=== PATIENT | female | born 1965 | race Caucasian/White ===

== ENCOUNTER 2017-02-28 15:04 | Emergency (ER) | payer OTHER ==
[~2017-02-28] VITALS: Ht 160 cm; Wt 65.8 kg
--- NOTE | 2017-02-28 15:04 | NUR ---
BIBRA 88 FOR PSYCH EVAL, PATIENT WAS RUNNING ON A TRAFFIC, 5MG VERSED GIVEN. COMBATIVE IN FIELD. NAD NOTED. PLACED ON MONITOR. MD AT BEDSIDE FOR EVAL.
[2017-02-28] MEDS ORDERED: ONDANSETRON HCL/PF 4 MG/2 ML VIAL IVP ONE (15:30)
[2017-02-28] MEDS ORDERED: IV NS 0.9% 1,000 ML BAG IV ONE (15:30)
[2017-02-28] MEDS ORDERED: ONDANSETRON HCL/PF 4 MG/2 ML VIAL ONE ×2 (15:33→15:36)
[2017-02-28 15:44] LABS: BASOPHILS % (AUTO) 0.2 % (0.0-2.0); EOSINOPHILS # (AUTO) 0.1 /CMM (0.0-0.7); EOSINOPHILS % (AUTO) 1.6 % (0.0-6.0); HEMATOCRIT 30 % (33-45); HEMOGLOBIN 9.6 g/dL (11.5-14.8); LYMPHOCYTES # (AUTO) 1.9 /CMM (0.8-4.8); LYMPHOCYTES % (AUTO) 35.9 % (20.0-44.0); MEAN CORPUSCULAR HEMOGLOBIN 26 PG (26.0-33.0); MEAN CORPUSCULAR HGB CONC 32 g/dl (31.0-36.0); MEAN CORPUSCULAR VOLUME 81 fL (82-100); MONOCYTES # (AUTO) 0.4 /CMM (0.1-1.30); MONOCYTES % (AUTO) 8.7 % (2.0-12.0); NEUTROPHILS # (AUTO) 2.8 /CMM (1.8-8.9); NEUTROPHILS % (AUTO) 53.6 % (43.0-81.0); PLATELET COUNT (AUTO) 222 /CMM (150-450); RDW COEFFICIENT OF VARIATION 16.5 (11.5-15.0); RED BLOOD CELL COUNT(AUTO) 3.74 MIL/uL (4.0-5.2); WHITE BLOOD COUNT (AUTO) 5.2 K/uL (4.3-11.0)
[2017-02-28 15:55] LABS: CALCIUM, SERUM 8.3 mg/dL (8.5-10.1); CARBON DIOXIDE 27 mmol/L (21-32); CHLORIDE 106 mmol/L (98-107); CREATININE 0.6 mg/dL (0.6-1.3); GLUCOSE 118 mg/dL (74-106); POTASSIUM 3.8 mmol/L (3.5-5.1); SODIUM SERUM 142 mmol/L (136-145); UREA NITROGEN, BLOOD 25 mg/dL (7-18)
[2017-02-28 16:02] LABS: ALANINE AMINOTRANSFERASE 33 U/L (12-78); ALBUMIN 3.3 g/dL (3.4-5.0); ALCOHOL, BLOOD < 3 mg/dL (0-0); ALKALINE PHOSPHATASE 57 U/L (46-116); ASPARTATE AMINOTRANSFERASE 24 U/L (15-37); BILIRUBIN,DIRECT 0.1 mg/dL (0.0-0.2); BILIRUBIN,TOTAL 0.3 mg/dL (0.2-1.0)
--- NOTE | 2017-02-28 16:03 | NUR ---
URINE OBTAINED SENT TO LAB
[2017-02-28 16:08] LABS: SALICYLATE 1.5 mg/dL (2.8-20.0)
[2017-02-28 16:09] LABS: ACETAMINOPHEN 0 ug/ml (10-30)
[2017-02-28 17:57] LABS: APPEARANCE,URINE CLEAR (CLEAR); BILIRUBIN,URINE NEGATIVE (NEGATIVE); BLOOD, URINE NEGATIVE Ery/uL (NEGATIVE); COLOR,URINE YELLOW (YELLOW); KETONES,URINE NEGATIVE (NEGATIVE); LEUKOCYTE ESTERASE ,URINE NEGATIVE (NEGATIVE); NITRITE, URINE NEGATIVE (NEGATIVE); PROTEIN,URINE NEGATIVE (NEGATIVE); UGLUCOSE NEGATIVE (NEGATIVE)
--- NOTE | 2017-02-28 18:11 | NUR ---
pinky for eval eta 1 hour
[2017-02-28] MEDS ORDERED: OLANZAPINE 10 MG VIAL IM ONE ×3 (20:00→20:02)
[2017-02-28] MEDS ORDERED: WATER FOR INJECTION,STERILE 10 ML ONE (20:02)
--- NOTE | 2017-02-28 21:37 | NUR ---
Patient is resting comfortably in bed with eyes closed. Easily aroused. VSS
[2017-02-28] MEDS ORDERED: LORAZEPAM INJ 2 MG/ML VIAL ONE (23:34)
[2017-03-01] MEDS ORDERED: LORAZEPAM INJ 2 MG/ML VIAL IV ONE
--- NOTE | 2017-03-01 01:45 | NUR ---
Patient is resting comfortably in bed with eyes closed. Easily aroused. VSS.
--- NOTE | 2017-03-01 03:25 | NUR ---
Patient is resting comfortably in bed with eyes closed. Easily aroused. VSS. pt able to verbalize needs.
--- NOTE | 2017-03-01 07:40 | NUR ---
Patient is resting comfortably in bed with eyes closed. Easily aroused. VSS
--- NOTE | 2017-03-01 09:40 | NUR ---
Pt is ambulatory with a steady gait.
--- NOTE | 2017-03-01 10:10 | NUR ---
Patient discharged to home in stable condition. Written and verbal after care instructions given. Patient verbalizes understanding of instruction.
[2017-03-01 10:20] VITALS: BP 126/81
== END 2017-03-01 10:22 | disposition home or self-care (01) ==
LOC: ER 15:31
DX: F29 Unspecified psychosis not due to a substance or known physiological condition (principal)
CPT/HCPCS: 36415; 80048; 80076; 80305; 80329; 81001; 85025; 96361; 96372 ×2; 96374; 96375; 99284; A4606; G0480 ×2; J2060; J2405 ×2; J3490; J7030 ×2; Z7610; 81000-TC

== ENCOUNTER 2017-03-05 14:22 | Emergency (ER) | payer OTHER ==
[~2017-03-05] VITALS: Ht 165.1 cm; Wt 70.3 kg
[2017-03-05] MEDS ORDERED: HALOPERIDOL LACTATE INJ 5 MG/ML VIAL ONE (14:28)
[2017-03-05] MEDS ORDERED: diphenhydrAMINE HCL 50 MG/ML VIAL ONE (14:28)
[2017-03-05] MEDS ORDERED: LORAZEPAM INJ 2 MG/ML VIAL ONE (14:29)
[2017-03-05] MEDS: LORAZEPAM INJ 2 MG/ML VIAL IM ONE (14:32)
[2017-03-05] MEDS: diphenhydrAMINE HCL 50 MG/ML VIAL IM ONE (14:33)
[2017-03-05] MEDS: HALOPERIDOL LACTATE INJ 5 MG/ML VIAL IM ONE (14:45)
[2017-03-05 15:10] LABS: BASOPHILS # (AUTO) 0.1 /CMM (0.0-0.2); EOSINOPHILS # (AUTO) 0.1 /CMM (0.0-0.7); EOSINOPHILS % (AUTO) 2.4 % (0.0-6.0); HEMATOCRIT 30 % (33-45); HEMOGLOBIN 9.8 g/dL (11.5-14.8); LYMPHOCYTES # (AUTO) 1.7 /CMM (0.8-4.8); LYMPHOCYTES % (AUTO) 32.3 % (20.0-44.0); MEAN CORPUSCULAR HEMOGLOBIN 26 PG (26.0-33.0); MEAN CORPUSCULAR HGB CONC 32 g/dl (31.0-36.0); MEAN CORPUSCULAR VOLUME 80 fL (82-100); MONOCYTES # (AUTO) 0.5 /CMM (0.1-1.30); MONOCYTES % (AUTO) 10.3 % (2.0-12.0); NEUTROPHILS # (AUTO) 2.8 /CMM (1.8-8.9); PLATELET COUNT (AUTO) 213 /CMM (150-450); RDW COEFFICIENT OF VARIATION 15.5 (11.5-15.0); RED BLOOD CELL COUNT(AUTO) 3.76 MIL/uL (4.0-5.2); WHITE BLOOD COUNT (AUTO) 5.2 K/uL (4.3-11.0)
[2017-03-05 15:27] LABS: CALCIUM, SERUM 8.3 mg/dL (8.5-10.1); CARBON DIOXIDE 20 mmol/L (21-32); CHLORIDE 108 mmol/L (98-107); CREATININE 0.9 mg/dL (0.6-1.3); GLUCOSE 107 mg/dL (74-106); POTASSIUM 3.3 mmol/L (3.5-5.1); SODIUM SERUM 142 mmol/L (136-145); UREA NITROGEN, BLOOD 16 mg/dL (7-18)
[2017-03-05 15:29] LABS: APPEARANCE,URINE Clear (CLEAR); BILIRUBIN,URINE Negative (NEGATIVE); BLOOD, URINE Moderate Ery/uL (NEGATIVE); COLOR,URINE Yellow (YELLOW); KETONES,URINE 15 (NEGATIVE); LEUKOCYTE ESTERASE ,URINE Negative (NEGATIVE); NITRITE, URINE Negative (NEGATIVE); PROTEIN,URINE Negative (NEGATIVE); UGLUCOSE Negative (NEGATIVE)
[2017-03-05 15:35] LABS: RBC,URINE 0-2 /HPF (0-2)
[2017-03-05 15:36] LABS: BACTERIA,URINE Moderate /HPF (None Seen); SQUAMOUS EPITHELIAL CELL,UR Moderate /HPF (None Seen)
[2017-03-05 15:39] LABS: ALANINE AMINOTRANSFERASE 25 U/L (12-78); ALBUMIN 3.3 g/dL (3.4-5.0); ALCOHOL, BLOOD 18 mg/dL (0-0); ALKALINE PHOSPHATASE 64 U/L (46-116); ASPARTATE AMINOTRANSFERASE 23 U/L (15-37); BILIRUBIN,DIRECT 0.1 mg/dL (0.0-0.2); BILIRUBIN,TOTAL 0.2 mg/dL (0.2-1.0); TOTAL PROTEIN, SERUM 6.9 g/dL (6.4-8.2)
[2017-03-05 15:42] LABS: SALICYLATE 1.6 mg/dL (2.8-20.0)
[2017-03-05 15:43] LABS: ACETAMINOPHEN < 10 ug/ml (10-30)
[2017-03-05] MEDS ORDERED: POTASSIUM CHLORIDE 20 MEQ TAB.PRT.SR PO ONE (17:24)
[2017-03-05] MEDS: POTASSIUM CHLORIDE 20 MEQ TAB.PRT.SR PO ONE (17:25)
[2017-03-06 06:24] VITALS: BP 128/71
== END 2017-03-06 06:25 | disposition home or self-care (01) ==
LOC: ER 14:25
DX: F29 Unspecified psychosis not due to a substance or known physiological condition (principal); D64.9 Anemia, unspecified; E87.6 Hypokalemia; F15.10 Other stimulant abuse, uncomplicated
CPT/HCPCS: 36415; 80048-TC; 80076-TC; 80305; 81000-TC; 85025-TC; 87086-TC; 87186-TC; G0480; J1200; J1630; J2060

== ENCOUNTER 2019-08-03 07:37 | Inpatient (IN) | payer OTHER ==
[~2019-08-03] VITALS: Ht 165.1 cm; Wt 75.3 kg
--- NOTE | 2019-08-03 07:45 | NUR ---
[id number] 54 YEAR OLD FEMALE picked up from the street, c/o "i can't feel my feet". ALERT AND ORIENTED X1-2, BREATHING EVEN AND UNLABORED. NOTED TO BE HOMELESS. SKIN WARM TO TOUCH. WAITING TO BE SEEN BY
[2019-08-03] MEDS ORDERED: ACETAMINOPHEN ES 500 MG TABLET ONE (08:19)
[2019-08-03 08:30] LABS: BASOPHILS # (AUTO) 0.1 /CMM (0.0-0.2); BASOPHILS % (AUTO) 0.4 % (0.0-2.0); HEMATOCRIT 41 % (33-45); HEMOGLOBIN 14.1 g/dL (11.5-14.8); LYMPHOCYTES # (AUTO) 1.1 /CMM (0.8-4.8); LYMPHOCYTES % (AUTO) 7.5 % (20.0-44.0); MEAN CORPUSCULAR HGB CONC 34 g/dl (31.0-36.0); MEAN CORPUSCULAR VOLUME 95 fL (82-100); MONOCYTES # (AUTO) 1.1 /CMM (0.1-1.30); MONOCYTES % (AUTO) 7.7 % (2.0-12.0); NEUTROPHILS # (AUTO) 11.8 /CMM (1.8-8.9); NEUTROPHILS % (AUTO) 84.4 % (43.0-81.0); PLATELET COUNT (AUTO) 240 /CMM (150-450); RED BLOOD CELL COUNT(AUTO) 4.31 MIL/uL (4.0-5.2); WHITE BLOOD COUNT (AUTO) 13.9 K/uL (4.3-11.0)
[2019-08-03] MEDS ORDERED: IV NS 0.9% 500 ML BAG IV ONE (08:30)
[2019-08-03] MEDS ORDERED: ACETAMINOPHEN ES 500 MG TABLET PO ONE (08:30)
[2019-08-03 08:37] LABS: CALCIUM, SERUM 9.8 mg/dL (8.5-10.1); CREATININE 0.7 mg/dL (0.6-1.3); POTASSIUM 3.5 mmol/L (3.5-5.1)
[2019-08-03 08:43] LABS: ALBUMIN 4.1 g/dL (3.4-5.0); BILIRUBIN,DIRECT 0.3 mg/dL (0.0-0.2); BILIRUBIN,TOTAL 1.2 mg/dL (0.2-1.0); TOTAL PROTEIN, SERUM 8.2 g/dL (6.4-8.2)
[2019-08-03] MEDS ORDERED: LORAZEPAM INJ 2 MG/ML VIAL IV ONE (09:30)
[2019-08-03] MEDS ORDERED: LORAZEPAM INJ 2 MG/ML VIAL ONE (09:33)
[2019-08-03] MEDS ORDERED: LEVE500T9 PO (11:20)
[2019-08-03] MEDS ORDERED: ALPR0.25 PO (11:20)
--- NOTE | 2019-08-03 11:30 | NUR ---
CALLED NURSING SUP FOR TELE BED.
[2019-08-03] MEDS ORDERED: IV NS 0.9% 1,000 ML BAG IV ONE (12:30)
--- NOTE | 2019-08-03 12:53 | NUR ---
pt remains stable, alseep but easily arouseable, no distress noted
--- NOTE | 2019-08-03 13:03 | NUR ---
NURSING SUP GAVE TELE BED 304-1.
--- NOTE | 2019-08-03 13:21 | NUR ---
REPORT GIVEN TO BURLAP SPREADER FOR CONTINUITY OF CARE
[2019-08-03] MEDS ORDERED: ONDANSETRON HCL/PF 4 MG/2 ML VIAL IVP PRN (14:00)
[2019-08-03] MEDS ORDERED: Z GUARD REMEDY 2 OZ OINT TP PRN (14:00)
[2019-08-03] MEDS ORDERED: MAG HYDROX/AL HYDROX/SIMETH 30 ML UDC PO PRN (14:00)
[2019-08-03] MEDS ORDERED: MAGNESIUM HYDROXIDE 30 ML UDC PO PRN (14:00)
[2019-08-03] MEDS: IV NS 0.9% 1,000 ML IV PRN ×2 (14:30→23:16)
[2019-08-03] MEDS: ACETAMINOPHEN 325 MG TABLET PO PRN ×2 (17:20→23:51)
--- NOTE | 2019-08-03 17:32 | NUR ---
TELE/RN NOTES ADMITTED A 54 Y/O FEMALE PATIENT ALERT AND ORIENTED X2. RECEIVED REPORT FROM ER NURSE. PATIENT CAME FROM BOARD AND CARE VIA AMBULANCE NO RESPIRATORY DISTRESS NOTED. PATIENT IS IN PAIN 12/15. OFFER NORCO 5 MG PATIENT REFUSED. INSTEAD SHE ASK TYLENOL FOR PAIN. PATIENT WITH ADMITTING DIAGNOSIS OF RHABDOMYOLYSIS. PATIENT WITH THE HISTORY OF SEIZURE DISORDER,ARTHRITIS, BACK INJURY T12, EPILEPSY. IN ROOM AIR. BED IN LOWEST POSITION AND LOCKED. SIDERAILS UP X2. CALL LIGHT WITH IN REACH. WILL CONTINUE TO MONITOR.
--- NOTE | 2019-08-03 19:35 | NUR ---
MS RN CLOSING NOTES PATIENT AWAKE IN BED. A/O X4. ON ROOM AIR. NO COMPLAINTS OF SOB OR PAIN AT THIS TIME. IV PRESENT ON RIGHT HAND SIZE 20, INTACT & PATENT, HEP LOCKED. BED LOCKED, SIDE RAILS X2, CALL LIGHT WITHIN REACH. WILL ENDORSE TO DAY SHIFT NURSE TO FOLLOW PLAN OF CARE.
--- NOTE | 2019-08-03 19:40 | NUR ---
RN OPENING NOTES RECEIVED PATIENT FROM ABHAY ENGLISH. PATIENT AWAKE IN BED. A/O X 4. PATIENT ABLE TO VERBALIZE NEEDS. ON ROOM AIR, TOLERATING WELL, NO SIGNS OF RESPIRATORY DISTRESS, NO SHORTNESS OF BREATH NOTED. TELE READING: ST 120. NO COMPLAINTS OF PAIN OR DISCOMFORT AT THIS TIME. IV SITE RIGHT HAND #20G IN PLACE, IVF RUNNING AT 125 ML/HR, INTACT, PATENT, NO SIGNS OF INFECTION/INFILTRATION. SAFETY PRECAUTIONS IMPLEMENTED; CALL LIGHT WITHIN REACH, BED LOCKED, BILATERAL UPPER SIDE RAILS UP. BED ALARM ON. WILL CONTINUE TO MONITOR.
[2019-08-03 20:00] VITALS: BP 136/74
[2019-08-03] MEDS: LEVETIRACETAM (250 MG) 250 MG TABLET PO SCH (20:10)
[2019-08-03] MEDS: ALPRAZOLAM 0.25 MG TABLET PO PRN (20:20)
[2019-08-04] VITALS: BP 114/74
[2019-08-04 04:00] VITALS: BP 119/65
--- NOTE | 2019-08-04 06:15 | NUR ---
RN CLOSING NOTES PATIENT IS CURRENTLY ASLEEP, EASILY AWAKENED. NO SIGNS OF RESPIRATORY DISTRESS, NO SHORTNESS OF BREATH NOTED, RESPIRATIONS EVEN AND UNLABORED. TELE READING [place] 110. NO SIGNS OF FACIAL GRIMACING INDICATING PAIN OR DISCOMFORT AT THIS TIME. IV SITE REMAINS IN PLACE, INTACT AND PATENT, NO SIGNS OF INFECTION/INFILTRATION. PATIENT KEPT CLEAN, DRY AND COMFORTABLE. ALL NEEDS MET ON SHIFT. PATIENT TURNED Q2H. ALL DUE MEDS GIVEN ORDERED WITH NO ADVERSE EFFECTS. SAFETY PRECAUTIONS IMPLEMENTED; CALL LIGHT WITHIN REACH, BED LOW, BED LOCKED, BILATERAL UPPER SIDE RAILS UP. BED ALARM ON. WILL ENDORSE TO DAY SHIFT NURSE FOR CONTINUITY OF CARE.
[2019-08-04 06:26] LABS: BASOPHILS % (AUTO) 0.4 % (0.0-2.0); EOSINOPHILS % (AUTO) 0.9 % (0.0-6.0); HEMATOCRIT 35 % (33-45); HEMOGLOBIN 11.9 g/dL (11.5-14.8); LYMPHOCYTES # (AUTO) 2.3 /CMM (0.8-4.8); LYMPHOCYTES % (AUTO) 30.8 % (20.0-44.0); MEAN CORPUSCULAR HGB CONC 34 g/dl (31.0-36.0); MEAN CORPUSCULAR VOLUME 97 fL (82-100); MONOCYTES # (AUTO) 0.7 /CMM (0.1-1.30); MONOCYTES % (AUTO) 9.6 % (2.0-12.0); NEUTROPHILS # (AUTO) 4.4 /CMM (1.8-8.9); NEUTROPHILS % (AUTO) 58.3 % (43.0-81.0); PLATELET COUNT (AUTO) 198 /CMM (150-450); RED BLOOD CELL COUNT(AUTO) 3.59 MIL/uL (4.0-5.2); WHITE BLOOD COUNT (AUTO) 7.5 K/uL (4.3-11.0)
[2019-08-04 06:47] LABS: CALCIUM, SERUM 8.3 mg/dL (8.5-10.1); CREATININE 0.6 mg/dL (0.6-1.3); MAGNESIUM 1.7 mg/dL (1.8-2.4); PHOSPHORUS 2.7 mg/dL (2.5-4.9); POTASSIUM 3.3 mmol/L (3.5-5.1)
--- NOTE | 2019-08-04 07:30 | NUR ---
PAYING TELLER NOTES PT IN BED, AWAKE, ALERT AND VERBALLY RESPONSIVE, NO COMPLAINT OF PAIN AT THIS TIME, NOT IN DISTRESS, CALL LIGHT WITHIN REACH, IV FLUIDS INFUSING WELL, KEPT COMFORTABLE IN BED.
[2019-08-04 08:00] VITALS: BP 136/76
[2019-08-04] MEDS ORDERED: POTASSIUM CHLORIDE 20 MEQ TAB.PRT.SR PO ONE (08:00)
[2019-08-04] MEDS: LEVETIRACETAM (250 MG) 250 MG TABLET PO SCH ×2 (09:05→20:33)
--- NOTE | 2019-08-04 10:10 | NUR ---
HAND OUTSIDE CUTTER NOTES PT SEEN BY DR. GUDINO, PLAN OF CARE DISCUSSED WITH PT, VERBALIZED UNDERSTANDING.
[2019-08-04] MEDS: IV NS 0.9% 1,000 ML IV PRN (11:03)
[2019-08-04] MEDS: Magnesium 1GM/D5W 100ML PREMIX 100 ML IV SCH ×2 (11:53→12:56)
[2019-08-04 16:00] VITALS: BP 123/72
--- NOTE | 2019-08-04 18:31 | NUR ---
RN MS NOTES PT IN BED, AWAKE, ALERT AND ORIENTED, NO COMPLAINT AT THIS TIME, NOT IN DISTRESS, IV FLUIDS INFUSING WELL, ASSISTED TO BEDSIDE COMMODE, ABLE TO HAVE BOWEL MOVEMENT, VERBALIZED RELIEF, REPOSITIONED FOR COMFORT, ALL NEEDS ATTENDED.
--- NOTE | 2019-08-04 19:10 | NUR ---
MS/RN OPENING NOTES: RECEIVED PATIENT AWAKE IN BED. A/O X 4. ABLE TO VERBALIZE NEEDS. ON ROOM AIR, TOLERATING WELL, NO SIGNS OF RESPIRATORY DISTRESS, NO SOB NOTED. NO COMPLAINTS OF PAIN OR DISCOMFORT AT THIS TIME. IV SITE RIGHT FOREARM #20G IN PLACE, IVF RUNNING AT 125 ML/HR, INTACT, PATENT, NO SIGNS OF INFECTION/INFILTRATION. SAFETY PRECAUTIONS IMPLEMENTED; CALL LIGHT WITHIN REACH, BED LOCKED, BILATERAL UPPER SIDE RAILS UP. BED ALARM ON. WILL CONTINUE TO MONITOR.
[2019-08-04 20:00] VITALS: BP 123/72
[2019-08-04 20:02] VITALS: BP 126/76
[2019-08-05] MEDS: IV NS 0.9% 1,000 ML IV PRN (01:17)
--- NOTE | 2019-08-05 06:37 | NUR ---
MS/RN CLOSING NOTES: PATIENT IS IN STABLE CONDITION. RESTING IN BED COMFORTABLY. A/OX3-4. VERBALLY RESPONSIVE AND ABLE TO MAKE NEEDS KNOWN. ONROOM AIR. NO SOB NOTED, NO S/S OF ACUTE DISTRESS. NO COMPLAINS OF PAIN AT THIS TIME. ALL DUE MEDS GIVEN ORDERED. ALL NEEDS ATTENDED AND MET. IV ACCESS ON THE RIGHT FA #20G INTACT AND PATENT WITH NS RUNNING AT 125MLS/HR. SAFETY MEASURES KEPT IN PLACE. BED IN LOW, LOCKED POSITION WITH SR UP X2. KEPT PT CLEAN AND DRY AT ALL TIMES. KEPT PT WARM AND COMFORTABLE THROUGHOUT THE SHIFT. WILL ENDORSE TO DAY SHIFT NURSE FOR MALENA.
[2019-08-05 07:17] LABS: BASOPHILS % (AUTO) 0.5 % (0.0-2.0); EOSINOPHILS % (AUTO) 2.3 % (0.0-6.0); HEMATOCRIT 33 % (33-45); HEMOGLOBIN 11.2 g/dL (11.5-14.8); LYMPHOCYTES # (AUTO) 1.7 /CMM (0.8-4.8); LYMPHOCYTES % (AUTO) 28.1 % (20.0-44.0); MEAN CORPUSCULAR HGB CONC 34 g/dl (31.0-36.0); MEAN CORPUSCULAR VOLUME 97 fL (82-100); MONOCYTES # (AUTO) 0.5 /CMM (0.1-1.30); MONOCYTES % (AUTO) 8.8 % (2.0-12.0); NEUTROPHILS # (AUTO) 3.6 /CMM (1.8-8.9); NEUTROPHILS % (AUTO) 60.3 % (43.0-81.0); PLATELET COUNT (AUTO) 181 /CMM (150-450); RED BLOOD CELL COUNT(AUTO) 3.43 MIL/uL (4.0-5.2)
[2019-08-05 07:43] LABS: CALCIUM, SERUM 8.6 mg/dL (8.5-10.1); CREATININE 0.5 mg/dL (0.6-1.3); MAGNESIUM 1.8 mg/dL (1.8-2.4); POTASSIUM 3.4 mmol/L (3.5-5.1)
[2019-08-05 08:00] VITALS: BP 112/64
--- NOTE | 2019-08-05 08:20 | NUR ---
ms rn received on bed, awake,alert,oriented x4,not in any form of distress, respirations even and unlabored,no sob noted, lungs are clear,abdomen soft,positive bowel sounds, denies pain at this time.
--- NOTE | 2019-08-05 09:00 | NUR ---
ms rose breakfast served,due meds given,tolerated well.
[2019-08-05] MEDS: LEVETIRACETAM (250 MG) 250 MG TABLET PO SCH ×2 (10:08→20:25)
[2019-08-05] MEDS: ALPRAZOLAM 0.25 MG TABLET PO PRN (10:53)
[2019-08-05] MEDS ORDERED: POTASSIUM CHLORIDE 20 MEQ TAB.PRT.SR PO SCH (11:30)
--- NOTE | 2019-08-05 12:25 | NUR ---
Social service consult requested by Dr Howe for possible homelessness. Per chart review and MD notes, pt is a 54-year-old female with history of seizure disorder who came to ED complaining of coldness to both her feet. The patient lives at a [id number] however left the [id number] and spent the night on the street. BUILDING INSULATION SUPERVISOR met with the pt. bedside. BUILDING INSULATION SUPERVISOR introduced self and explained her role. Pt. appears disheveled and guarded. Pt states she was living at [facility] and decided to walk away from the facility to " get away from that place." Pt is a poor historian and provides limited answers to questions asked. Pt abruptly in the middle of the assessment began yelling and repeating, " I'm critically injured." BUILDING INSULATION SUPERVISOR had to stop the assessment due to pt's getting agitated. BUILDING INSULATION SUPERVISOR updated RYANNE Dodge with aforementioned information. BUILDING INSULATION SUPERVISOR informed case packer Cherise that pt. states, she resided at [facility]. BUILDING INSULATION SUPERVISOR requested psychiatry consult for the pt.
[2019-08-05 16:00] VITALS: BP 105/65
[2019-08-05] MEDS ORDERED: POTASSIUM CHLORIDE 20 MEQ TAB.PRT.SR PO ONE (18:00)
--- NOTE | 2019-08-05 18:50 | NUR ---
ms rn on bed, no distress noted.
--- NOTE | 2019-08-05 19:39 | NUR ---
MS/RN OPENING NOTES: RECEIVED PATIENT AWAKE IN BED. A/O X 3-4. ABLE TO VERBALIZE NEEDS. ON ROOM AIR, TOLERATING WELL, NO SIGNS OF RESPIRATORY DISTRESS, NO SOB NOTED. NO COMPLAINTS OF PAIN OR DISCOMFORT AT THIS TIME. IV SITE RIGHT FOREARM #20G IN PLACE, IVF RUNNING AT 125 ML/HR, INTACT, PATENT, NO SIGNS OF INFECTION/INFILTRATION. SAFETY PRECAUTIONS IMPLEMENTED; CALL LIGHT WITHIN REACH, BED LOCKED, BILATERAL UPPER SIDE RAILS UP. BED ALARM ON. WILL CONTINUE TO MONITOR.
[2019-08-05 20:00] VITALS: BP 114/72
[2019-08-05] MEDS: HYDROCODONE/APAP 5/325MG 1 EACH TABLET PO PRN (20:59)
--- NOTE | 2019-08-05 20:59 | NUR ---
MS/RN NOTES: PATIENT COMPLAINED OF PAIN LEVEL OF 7 ON HER LEGS. GIVEN NORCO 5 MG TAB PO, TOLERATED WELL. VS STABLE AND WNL. WILL CONTINUE TO MONITOR.
[2019-08-05 21:01] VITALS: BP 114/72
[2019-08-06] MEDS: IV NS 0.9% 1,000 ML IV PRN ×2 (03:04→18:24)
[2019-08-06] MEDS: ACETAMINOPHEN 325 MG TABLET PO PRN ×2 (04:34→11:41)
--- NOTE | 2019-08-06 04:34 | NUR ---
MS/RN NOTES: PATIENT COMPLAINED OF GENERALIZED MILD PAIN LEVEL OF 3. REQUESTED TYLENOL. GIVEN 650MG TYLENOL PO, TOLERATED WELL. VS STABLE AND WNL. WILL CONTINUE TO MONITOR.
--- NOTE | 2019-08-06 06:20 | NUR ---
MS/RN CLOSING NOTES: PATIENT IS SLEEPING IN BED. REMAINS A/OX3-4. VERBALLY RESPONSIVE AND ABLE TO MAKE NEEDS KNOWN. ON ROOM AIR. NO SOB NOTED, NO S/S OF ACUTE DISTRESS. NO COMPLAINS OF PAIN AT THIS TIME. ALL DUE MEDS GIVEN ORDERED. ALL NEEDS ATTENDED AND MET. IV ACCESS ON THE LEFT HAND #22G INTACT AND PATENT WITH NS RUNNING AT 125MLS/HR. SAFETY MEASURES KEPT IN PLACE. BED IN LOW, LOCKED POSITION WITH SR UP X2. KEPT PT CLEAN AND DRY AT ALL TIMES. KEPT PT WARM AND COMFORTABLE THROUGHOUT THE SHIFT. WILL ENDORSE TO DAY SHIFT NURSE FOR MALENA.
[2019-08-06 06:50] LABS: CALCIUM, SERUM 8.7 mg/dL (8.5-10.1); CREATININE 0.5 mg/dL (0.6-1.3); POTASSIUM 3.9 mmol/L (3.5-5.1)
--- NOTE | 2019-08-06 07:30 | NUR ---
MS/RN OPENING NOTES: RECEIVED PATIENT IN BED RESTING COMFORTABLY IN MODERATE HIGH BACK REST. A/O X 3-4. ABLE TO VERBALIZE NEEDS. ON ROOM AIR, TOLERATING WELL, NO SIGNS OF DISTRESS NOTED AT THIS TIME. IV SITE RIGHT FOREARM #20G IN PLACE, IVF RUNNING AT 125 ML/HR, INTACT, PATENT, NO SIGNS OF INFECTION/INFILTRATION. SAFETY MEASURES IN PLACE; CALL LIGHT WITHIN REACH, BED LOCKED, SIDE RAILS UP X2. BED ALARM ON. WILL CONTINUE TO MONITOR.
[2019-08-06 08:00] VITALS: BP 110/72
[2019-08-06] MEDS: LEVETIRACETAM (250 MG) 250 MG TABLET PO SCH ×2 (09:01→21:53)
[2019-08-06] MEDS: CYANOCOBALAMIN 1,000 MCG/ML VIAL SQ SCH (09:22)
[2019-08-06] MEDS: ALPRAZOLAM 0.25 MG TABLET PO PRN (15:33)
[2019-08-06 16:00] VITALS: BP 122/68
--- NOTE | 2019-08-06 18:00 | NUR ---
RN NOTES CALLED REGARDING DISCHARGE, PER ZACHARIAH NO AUTHORIZATION YET, POSSIBLE DC TOMORROW.
--- NOTE | 2019-08-06 18:48 | NUR ---
MS/RN CLOSING NOTES: PATIENT IN BED RESTING COMFORTABLY IN MODERATE HIGH BACK REST. A/O X 3. ABLE TO VERBALIZE NEEDS. ON ROOM AIR, TOLERATING WELL, NO SIGNS OF DISTRESS NOTED THROUGHOUT THE SHIFT. IV SITE RIGHT FOREARM #20G IN PLACE, IVF RUNNING AT 125 ML/HR, INTACT, PATENT, NO SIGNS OF INFECTION/INFILTRATION. SAFETY MEASURES IN PLACE; CALL LIGHT WITHIN REACH, BED LOCKED, SIDE RAILS UP X2. BED ALARM ON. WILL ENDORSE TO FOOD OR BAGGAGE HANDLING RAMPMAN NURSE FOR MALENA.
--- NOTE | 2019-08-06 18:48 | NUR ---
CALLED CM REGARDING DISCHARGE, PER ZACHARIAH NO AUTHORIZATION YET, POSSIBLE DC TOMORROW.
--- NOTE | 2019-08-06 19:06 | NUR ---
CHANGE OF SHIFT REPORT Patient in bed, awake, appears weak, denies pain. IVF infusing. Possible discharge tomorrow per report. Fall precaution maintained.
[2019-08-06 20:00] VITALS: BP 108/72
[2019-08-06 20:37] VITALS: BP 108/72
[2019-08-07] MEDS: ALPRAZOLAM 0.25 MG TABLET PO PRN (02:59)
--- NOTE | 2019-08-07 06:18 | NUR ---
END OF SHIFT REPORT Patient in bed, A/O x3. IVF infusing, denies pain. Independent with ADL. Episode of anxiety last night, given PRN Xanax, was able to calm down and slept well. Tolerating RA. Plan for discharge to SNF. Will endorse to Oncoming RN.
--- NOTE | 2019-08-07 08:00 | NUR ---
MS RN OPENING NOTES Received Patient asleep and resting in bed. A/O x 3. Patient in stable condition with no acute distress. Breathing even and unlabored on room air with no respiratory distress. No signs and symptoms of pain. RFA PIV clean, intact, patent and flushing well with NS infusing at 125ml/hr. Safety precautions in place. Bed locked and set to lowest position with side rails x 2 up. All needs rendered at this time. Call light within reach. Will continue to monitor.
[2019-08-07] MEDS: LEVETIRACETAM (250 MG) 250 MG TABLET PO SCH ×2 (09:22→21:28)
[2019-08-07] MEDS: CYANOCOBALAMIN 1,000 MCG/ML VIAL SQ SCH (09:22)
[2019-08-07 09:25] VITALS: BP 116/71
[2019-08-07] MEDS: HYDROCODONE/APAP 5/325MG 1 EACH TABLET PO PRN ×2 (10:12→21:50)
--- NOTE | 2019-08-07 10:36 | NUR ---
MS RN NOTES Patient stated pain level of 8/10 headache and bilateral legs aching. Offered and refused [place] 5-325mg PO x 1 tab. Provided comfort measures. Assisted Patient to restroom for Patient to "freshen" up. Patient in bed, awake and resting. Bed alarm in place. Will continue to monitor.
--- NOTE | 2019-08-07 13:20 | NUR ---
SOFTWARE DESIGNER met with the pt bedside. Pt appears to be debilitated and was sitting upright on her bed and staring into space and playing with her hair. Pt continues to be a poor historian and is not able to have a conversation with SOFTWARE DESIGNER. Pt is not appropriate for correction placement. horse farm manager Cherise has been updated.
[2019-08-07 16:23] VITALS: BP 125/78
[2019-08-07] MEDS: IV NS 0.9% 1,000 ML IV PRN (17:26)
--- NOTE | 2019-08-07 19:40 | NUR ---
MS RN NOTE: PATIENT RESTING IN BED, NO ACUTE DISTRESS NOTED. BREATHING EVEN AND UNLABORED, NO SOB NOTED. IV TO RFA IN PLACE, INFUSING NS AT 125ML/HR. BED LOCKED AND IN LOWEST POSITION, CALL LIGHT IN REACH. WILL CONTINUE TO MONITOR.
--- NOTE | 2019-08-07 19:42 | NUR ---
MS RN CLOSING NOTES Patient awake and resting in bed. A/O x 3. Patient in stable condition with no acute distress. Breathing even and unlabored on room air with no respiratory distress. Patient stated mild pain, will endorse to oncoming shift. RFA PIV clean, intact, patent and flushing well with NS infusing at 125ml/hr. Safety precautions in place. Bed locked and set to lowest position with side rails x 2 up. All needs rendered at this time. Call light within reach. Will endorse plan of care to oncoming shift.
[2019-08-07 20:00] VITALS: BP 110/72
--- NOTE | 2019-08-07 21:30 | NUR ---
MS BLANK NOTE: PATIENT COMPLAINS OF HEADACHE AND BLE PAIN 01/14, NORCO 5/325MG 1 TAB ORAL GIVEN PER MD ORDER. WILL CONTINUE TO MONITOR. Addendum: 08/08/19 at 0131 by DANICA WHITT RN MEDICATION GIVEN AT 2150
--- NOTE | 2019-08-08 06:10 | NUR ---
MS RN NOTE: PATIENT RESTING IN BED, NO ACUTE DISTRESS NOTED. BREATHING EVEN AND UNLABORED, NO SOB NOTED. IV TO RFA IN PLACE, INFUSING NS AT 125ML/HR. BED LOCKED AND IN LOWEST POSITION, CALL LIGHT IN REACH. WILL ENDORSE TO DAY NURSE TO CONTINUE WITH PLAN OF CARE.
[2019-08-08] MEDS: IV NS 0.9% 1,000 ML IV PRN (06:59)
[2019-08-08 08:00] VITALS: BP 124/67
--- NOTE | 2019-08-08 08:00 | NUR ---
MS RN OPENING NOTES Received Patient asleep and resting in bed. A/O x 3. Patient in stable condition with no acute distress. Breathing even and unlabored on room air with no respiratory distress. No signs and symptoms of pain. 22g PIV on RFA clean, intact, patent and flushing well with NS infusing at 125ml/hr. Safety precautions in place. Bed locked and set to lowest position with side rails x 2 up. All needs rendered at this time. Call light within reach. Will continue to monitor.
[2019-08-08] MEDS: ACETAMINOPHEN 325 MG TABLET PO PRN (08:31)
[2019-08-08] MEDS: CYANOCOBALAMIN 1,000 MCG/ML VIAL SQ SCH (08:31)
[2019-08-08] MEDS: LEVETIRACETAM (250 MG) 250 MG TABLET PO SCH (08:31)
[2019-08-08 16:00] VITALS: BP_SYST 112; BP_SYST 124; BP_DIAS 67; BP_DIAS 74
[2019-08-08] MEDS: HYDROCODONE/APAP 5/325MG 1 EACH TABLET PO PRN (17:10)
--- NOTE | 2019-08-08 18:26 | NUR ---
MS OUTREACH LIAISON NOTES Patient discharged for B&C at this time. Patient in stable condition. VS stable with no acute distress. Breathing even and unlabored on room air with no respiratory distress. Denies pain. Medication reconciliation and discharge orders reviewed and explained to Patient. Patient verbalized understanding. Patient will follow up with PCP in 1 week. Escorted Patient to the Lobby for safety. Patient picked up by Marilyn. Addendum: 08/08/19 at 1853 by YESENIA CARDENAS RN Skin intact. Skin assessment photos taken and placed in chart.
== END 2019-08-08 18:34 | disposition home or self-care (01) | DRG 351 ==
LOC: ER 07:37 → TELE 13:16 → MED 08-04 11:01
PROVIDERS: ADMIT Internal Medicine; ATTEND Internal Medicine
DX: M62.82 Rhabdomyolysis (principal); N17.0 Acute kidney failure with tubular necrosis; G93.41 Metabolic encephalopathy; E86.0 Dehydration; G40.909 Epilepsy, unspecified, not intractable, without status epilepticus; E87.6 Hypokalemia; D72.829 Elevated white blood cell count, unspecified; F41.9 Anxiety disorder, unspecified
CPT/HCPCS: 36415; 70450-TC; 71045-TC; 80048-TC; 80076-TC; 82550-TC; 83690-TC; 83735-TC; 84100-TC; 84443-TC; 85025-TC; 87081-TC; 97110-TC; 97112-TC; 97116-TC; 97530-TC; G0378; J2060; J3420; J3475; J7030; J7040

== ENCOUNTER 2019-08-28 21:53 | Emergency (ER) | payer OTHER ==
[~2019-08-28] VITALS: Ht 170.2 cm; Wt 67.1 kg
[~2019-08-28 21:53] MED LIST: ALPR0.25 PO; LEVE500T9 PO
[2019-08-28 22:30] LABS: BASOPHILS % (AUTO) 0.2 % (0.0-2.0); HEMATOCRIT 40 % (33-45); HEMOGLOBIN 13.6 g/dL (11.5-14.8); LYMPHOCYTES # (AUTO) 1.6 /CMM (0.8-4.8); LYMPHOCYTES % (AUTO) 11.1 % (20.0-44.0); MEAN CORPUSCULAR HGB CONC 34 g/dl (31.0-36.0); MEAN CORPUSCULAR VOLUME 96 fL (82-100); MONOCYTES # (AUTO) 1.2 /CMM (0.1-1.30); MONOCYTES % (AUTO) 8.4 % (2.0-12.0); NEUTROPHILS # (AUTO) 11.6 /CMM (1.8-8.9); NEUTROPHILS % (AUTO) 80.3 % (43.0-81.0); PLATELET COUNT (AUTO) 282 /CMM (150-450); WHITE BLOOD COUNT (AUTO) 14.4 K/uL (4.3-11.0)
--- NOTE | 2019-08-28 22:30 | NUR ---
YANCI FROM [facility] [facility]CR[facility] THE [address]RE[address]. TO ER BED 10. LETHARGIC. SLOW TO RESPOND. BROUGHT IN FOR SEIZURE. PT IS NOTED WITH TREMORS. PT IS REPORTED TO HAVE DX OF EPILEPSY AND IS ON KEPRA. PER PT, LAST TIME SHE TOOK HER KEPRA WAS YESTERDAY. PT DENIES FALLING BUT NOTED DIRT ON HER FOREHEAD. PT IS PLACED ON SEIZURE PRECAUTION. O2 VIA NC AT 2LPM, WAS AT BEDSIDE MACI COLES
[2019-08-28 22:36] LABS: CALCIUM, SERUM 10.7 mg/dL (8.5-10.1); CARBON DIOXIDE 25 mmol/L (21-32); CHLORIDE 100 mmol/L (98-107); CREATININE 1.2 mg/dL (0.6-1.3); GLUCOSE 135 mg/dL (74-106); POTASSIUM 3.4 mmol/L (3.5-5.1); SODIUM SERUM 140 mmol/L (136-145); UREA NITROGEN, BLOOD 31 mg/dL (7-18)
[2019-08-28 22:50] LABS: ALANINE AMINOTRANSFERASE 53 U/L (12-78); ALBUMIN 4.4 g/dL (3.4-5.0); ALKALINE PHOSPHATASE 84 U/L (46-116); ASPARTATE AMINOTRANSFERASE 51 U/L (15-37); BILIRUBIN,DIRECT 0.1 mg/dL (0.0-0.2); BILIRUBIN,TOTAL 0.6 mg/dL (0.2-1.0); TOTAL PROTEIN, SERUM 8.7 g/dL (6.4-8.2)
[2019-08-28 22:54] LABS: ALCOHOL, BLOOD < 3 mg/dL (0-0)
[2019-08-28] MEDS ORDERED: LEVETIRACETAM (250 MG) 250 MG TABLET PO ONE (23:37)
[2019-08-29] MEDS ORDERED: LEVETIRACETAM (250 MG) 250 MG TABLET PO ONE
--- NOTE | 2019-08-29 01:53 | NUR ---
PT IN BED SLEEPING. NO DISTRESS NOTED
--- NOTE | 2019-08-29 03:42 | NUR ---
PT IN BED SLEEPING COMFORTABLY. BREATHING EVEN AND UNLABORED
--- NOTE | 2019-08-29 06:32 | NUR ---
SPOKE WITH SEBASTIAN, CALL THE CAR FOR [employer]. RESERVATION NUMBER [phone]. WILL CALL BACK FOR ETA
--- NOTE | 2019-08-29 06:37 | NUR ---
PLUNGER SHOVEL OPERATOR ETA @ [id number] BY [facility]
--- NOTE | 2019-08-29 06:40 | NUR ---
SPOKE WITH SUSAN, CAREGIVER AT THE [facility] TO NOTIFY THAT PT IS COMING BACK
--- NOTE | 2019-08-29 07:04 | NUR ---
PT ENDORSED TO ABHAY ANDERSON FOR MALENA
--- NOTE | 2019-08-29 08:57 | NUR ---
Report given to security trainer. patient a/ox4, breathing even and unlabored, no sob noted. On o2 at 2lpm via nc with spo2 of 99%. Patient denies pain. no distress noted. Patient left the facility in stable condition.
[2019-08-29 08:58] VITALS: BP 115/64
== END 2019-08-29 08:58 ==
LOC: ER 21:55
DX: G40.909 Epilepsy, unspecified, not intractable, without status epilepticus (principal); Z79.899 Other long term (current) drug therapy
CPT/HCPCS: 36415; 70450-TC; 71045-TC; 80048-TC; 80076-TC; 82962-TC; 85025-TC; 85730-TC; G0480

== ENCOUNTER 2021-11-24 22:19 | Emergency (ER) | payer OTHER ==
[~2021-11-24] VITALS: Ht 167.6 cm; Wt 72.6 kg
[2021-11-25 00:12] VITALS: BP 142/83
--- NOTE | 2021-11-25 00:15 | NUR ---
BIBSELF C/O BLE SWELLING, BUMPS OM HEAD, EYE IRRITATION. PT A/OX4. TOLERATING R/A WELL WITH NO SOB. PT AMBULATORY WITH STEADY GAIT. CONNECTED PT TO POX AND MONITOR . SAFETY MEASURES IN PLACE
--- NOTE | 2021-11-25 00:54 | NUR ---
FISH NET MAKER AT PT'S BEDSIDE
[2021-11-25 01:02] LABS: BASOPHILS % (AUTO) 0.2 % (0.0-2.0); EOSINOPHILS % (AUTO) 1.5 % (0.0-6.0); HEMATOCRIT 30 % (33-45); HEMOGLOBIN 10.5 g/dL (11.5-14.8); LYMPHOCYTES # (AUTO) 1.5 K/uL (0.8-4.8); MEAN CORPUSCULAR HGB CONC 35 g/dl (31.0-36.0); MEAN CORPUSCULAR VOLUME 99 fL (82-100); MONOCYTES # (AUTO) 0.6 K/uL (0.1-1.30); MONOCYTES % (AUTO) 11.2 % (2.0-12.0); NEUTROPHILS # (AUTO) 3.3 K/uL (1.8-8.9); NEUTROPHILS % (AUTO) 59.1 % (43.0-81.0); PLATELET COUNT (AUTO) 250 K/uL (150-450); RED BLOOD CELL COUNT(AUTO) 3.07 MIL/uL (4.0-5.2); WHITE BLOOD COUNT (AUTO) 5.5 K/uL (4.3-11.0)
[2021-11-25 01:29] LABS: CALCIUM, SERUM 8.6 mg/dL (8.5-10.1); CREATININE 0.7 mg/dL (0.6-1.3); POTASSIUM 3.3 mmol/L (3.5-5.1)
[2021-11-25 01:41] LABS: ALBUMIN 2.8 g/dL (3.4-5.0); BILIRUBIN,TOTAL 0.2 mg/dL (0.2-1.0); TOTAL PROTEIN, SERUM 6.8 g/dL (6.4-8.2)
--- NOTE | 2021-11-25 01:44 | NUR ---
US TECH AT PT'S BEDSIDE
[2021-11-25] MEDS ORDERED: IBUP-1957 PO (02:39)
[2021-11-25] MEDS ORDERED: CLIN300C12 PO (02:39)
--- NOTE | 2021-11-25 03:05 | NUR ---
Patient given written and verbal discharge instructions. Patient verbalizes understanding of instructions. Patient is ambulatory with steady gait. Refuses offer of halfway placement. Patient given list of available shelters in surrounding area.
== END 2021-11-25 03:05 | disposition home or self-care (01) ==
LOC: ER 22:22
DX: L03.116 Cellulitis of left lower limb (principal); L03.115 Cellulitis of right lower limb; H26.8 Other specified cataract; Z86.69 Personal history of other diseases of the nervous system and sense organs; Z79.899 Other long term (current) drug therapy
CPT/HCPCS: 36415; 80053-TC; 82550-TC; 83880; 84484-TC; 85025-TC; 93970-TC

== ENCOUNTER 2021-11-26 10:11 | Emergency (ER) | payer OTHER ==
[~2021-11-26] VITALS: Ht 165.1 cm; Wt 56.7 kg
[~2021-11-26 10:11] MED LIST changes: +CLIN300C12 PO; +IBUP-1957 PO
[2021-11-26 10:19] VITALS: BP 139/57
[2021-11-26] MEDS ORDERED: TDAP [DIPH/PERTUSSIS/TET] 0.5 ML VIAL IM ONE ×2 (11:25→11:30)
--- NOTE | 2021-11-26 11:30 | NUR ---
Patient discharged to home in stable condition. Written and verbal after care instructions given. Patient verbalizes understanding of instruction.
== END 2021-11-26 11:31 | disposition home or self-care (01) ==
LOC: ER 10:12
DX: S00.81XA Abrasion of other part of head, initial encounter (principal); Z86.69 Personal history of other diseases of the nervous system and sense organs; Z79.899 Other long term (current) drug therapy; W18.30XA Fall on same level, unspecified, initial encounter; Y93.89 Activity, other specified; Y92.89 Other specified places as the place of occurrence of the external cause; Y99.8 Other external cause status
CPT/HCPCS: 90715

== ENCOUNTER 2021-12-06 01:15 | Emergency (ER) | payer OTHER ==
[~2021-12-06] VITALS: Ht 165.1 cm; Wt 56.7 kg
--- NOTE | 2021-12-06 01:59 | NUR ---
BIBS TO ER BED 14. AAOX4. NOT IN RESP DISTRESS. AMBULATORY. CAME IN FOR BLURRY VISION X 2-3 WEEKS. VISUAL ACUITY DONE 20/200 ON BOTH, ON LEFT AND 20/200 ON RIGHT. PT IS ABLE TO NAVIGATE HER SELF AROUND. PT CLAIMS SHE HAVE A TUMOR. AWAITING MD FOR EVAL.
[2021-12-06 02:23] LABS: BASOPHILS # (AUTO) 0.1 K/uL (0.0-0.2); BASOPHILS % (AUTO) 0.7 % (0.0-2.0); EOSINOPHILS % (AUTO) 1.4 % (0.0-6.0); HEMATOCRIT 34 % (33-45); HEMOGLOBIN 11.2 g/dL (11.5-14.8); LYMPHOCYTES # (AUTO) 2.2 K/uL (0.8-4.8); LYMPHOCYTES % (AUTO) 30.1 % (20.0-44.0); MEAN CORPUSCULAR HGB CONC 33 g/dl (31.0-36.0); MEAN CORPUSCULAR VOLUME 99 fL (82-100); MONOCYTES # (AUTO) 0.7 K/uL (0.1-1.30); MONOCYTES % (AUTO) 9.6 % (2.0-12.0); NEUTROPHILS # (AUTO) 4.2 K/uL (1.8-8.9); NEUTROPHILS % (AUTO) 58.2 % (43.0-81.0); PLATELET COUNT (AUTO) 349 K/uL (150-450); RED BLOOD CELL COUNT(AUTO) 3.39 MIL/uL (4.0-5.2); WHITE BLOOD COUNT (AUTO) 7.2 K/uL (4.3-11.0)
[2021-12-06 02:57] LABS: ALANINE AMINOTRANSFERASE 20 U/L (12-78); ALBUMIN 3.2 g/dL (3.4-5.0); ALCOHOL, BLOOD < 3 mg/dL (0-0); ALKALINE PHOSPHATASE 90 U/L (46-116); ASPARTATE AMINOTRANSFERASE 23 U/L (15-37); BILIRUBIN,DIRECT 0.1 mg/dL (0.0-0.2); BILIRUBIN,TOTAL 0.3 mg/dL (0.2-1.0); CHLORIDE 103 mmol/L (98-107); CREATININE 0.8 mg/dL (0.6-1.3); GLUCOSE 127 mg/dL (74-106); POTASSIUM 3.1 mmol/L (3.5-5.1); SODIUM SERUM 137 mmol/L (136-145); TOTAL PROTEIN, SERUM 7.2 g/dL (6.4-8.2); UREA NITROGEN, BLOOD 14 mg/dL (7-18)
[2021-12-06 03:06] LABS: ACETAMINOPHEN < 2 ug/ml (10-30)
[2021-12-06 03:15] LABS: CALCIUM, SERUM 9.2 mg/dL (8.5-10.1)
[2021-12-06] MEDS ORDERED: POTASSIUM CHLORIDE 20 MEQ TAB.PRT.SR PO ONE ×2 (03:27→03:30)
[2021-12-06] MEDS ORDERED: MAGN200T5 PO (05:06)
[2021-12-06] MEDS ORDERED: POTA20TA83 PO (05:06)
[2021-12-06] MEDS ORDERED: MAGNESIUM OXIDE 400 MG TABLET PO ONE (05:30)
--- NOTE | 2021-12-06 05:35 | NUR ---
Patient given written and verbal discharge instructions. Patient verbalizes understanding of instructions. Patient is ambulatory with steady gait. Refuses offer of care home placement. Patient given list of available shelters in surrounding area.
[2021-12-06 05:42] VITALS: BP 150/74
== END 2021-12-06 05:42 | disposition home or self-care (01) ==
LOC: ER 01:16
DX: E87.6 Hypokalemia (principal); E83.42 Hypomagnesemia; Z86.69 Personal history of other diseases of the nervous system and sense organs; Z79.899 Other long term (current) drug therapy
CPT/HCPCS: 36415; 70450-TC; 80048-TC; 80076-TC; 83735-TC; 85025-TC; G0480